=== PATIENT | male | born 1975 | race Caucasian/White ===

== ENCOUNTER 2017-05-09 22:33 | Emergency (ER) | payer SELFPAY ==
--- NOTE | 2017-05-09 23:33 | ER Document Report ---
HPI - HPI Patient complains to provider of: Cough, headache, laryngitis, cannot hear out of his left ear Onset: Other - Symptoms have been 3 weeks Pain Level: 5 Context: 42-year-old smoker normally healthy male complaining of throbbing left sided headache posterior occiput to temporal, 5/5 due to coughing that started at 10: 00 pm. The headache has been intermittent for 3 days. He has been sick for 3 weeks with losing his voice, coughing, and tonight he cannot hear out of his left ear. Associated Symptoms: None Exacerbated by: Coughing Relieved by: Other - motrin Similar symptoms previously: No Recently seen / treated by doctor: No - ROS ROS below otherwise negative: Yes Systems Reviewed and Negative: Yes All other systems reviewed and negative Past Medical History - General Information source: Patient - Social History Smoking Status: Current Every Day Smoker Frequency of alcohol use: None Drug Abuse: None Lives with: Family Family History: Arthritis, CAD, CVA, DM, Hyperlipidemia, Hypertension, Malignancy, Thyroid Disfunction Musculoskeltal Medical History: Reports Hx Arthritis Surgical Hx: Negative - Immunizations Hx Diphtheria, Pertussis, Tetanus Vaccination: Yes Vertical Provider Document - CONSTITUTIONAL Agree With Documented VS: Yes Exam Limitations: No Limitations - INFECTION CONTROL TRAVEL OUTSIDE OF THE [place] IN LAST 30 DAYS: No - HEENT HEENT: Normocephalic, Pharyngeal Erythema. negative: Conjuctival Injection, Tympanic Membrane Red - NECK Neck: Supple. negative: Lymphadenopathy-Left, Lymphadenopathy-Right - RESPIRATORY Respiratory: Breath Sounds Normal, No Respiratory Distress O2 Sat by Pulse Oximetry: 95 - CARDIOVASCULAR Cardiovascular: Regular Rate, Regular Rhythm - GI/ABDOMEN Gastrointestinal: Abdomen Soft, Abdomen Non-Tender - MUSCULOSKELETAL/EXTREMETIES Musculoskeletal/Extremeties: DEIRDRE MIMS - NEURO Level of Consciousness: Awake, Alert, Appropriate - DERM Integumentary: Warm, Dry, No Rash Course - Re-evaluation Re-evalutation: 05/10/17 00:24 Headache down to 3/5. Heat applied to the posterior left neck muscles that are tender. He states that the albuterol nebulizer did not help. 05/10/17 00:42 Patient is complaining of right elbow pain and he is shaking a lot to get since that home is no different than what he has had in the past. Heat seems to help. The head CT and chest x-ray are negative. - Vital Signs Vital signs: Temp Pulse Resp BP Pulse Ox 97.9 F 72 16 156/86 H 95 05/09/17 22:41 05/09/17 22:41 05/09/17 22:41 05/09/17 22:41 05/09/17 22:41 Discharge - Discharge Clinical Impression: Upper respiratory infection, Laryngitis Headache Qualifiers: Headache type: unspecified Headache chronicity pattern: episodic headache Intractability: not intractable Qualified Code(s): R51 - Headache Condition: Good Disposition: HOME, SELF-CARE Instructions: Intravenous Compazine for Headaches ([facility]), Use of Diphenhydramine , Headache ([facility]), Laryngitis ([facility]), Stop Smoking ([facility]), Toradol Injection ([facility]) , Upper Respiratory Illness ([facility]) Additional Instructions: heat to sore neck muscle see neurologist if headache persists stop smoking drink plenty of fluids cool mist humidifier at night to er if worse Please complete the patient satisfaction survey if you get one, and return it.. If you do not receive a survey, then you can go to the [facility] website, [email or web address] and place your comments about your very good care. Thank you very much. It was a pleasure being your medical provider today. Prescriptions: Benzonatate [Tessalon Perles 100 mg Capsule] 100 mg PO ASDIR PRN #30 capsule PRN Reason: Referrals: JOANA RIOS MD [ACTIVE STAFF] - Follow up as needed
[2017-05-09] MEDS ORDERED: DIPHENHYDRAMINE HCL 50 MG/ML VIAL IV ONE (23:38)
[2017-05-09] MEDS ORDERED: KETOROLAC TROMETHAMINE INJ/PF 30 MG/1 ML SDV IV ONE (23:38)
[2017-05-09] MEDS ORDERED: PROCHLORPERAZINE EDISYLATE INJ 10 MG/2 ML VIAL IV ONE (23:38)
[2017-05-09] MEDS ORDERED: ALBUTEROL SULFATE 0.083% NEB 2.5 MG/3 ML AMPUL NEB ONE (23:43)
--- NOTE | 2017-05-10 00:34 | RADIOLOGY REPORT (SQ) ---
EXAM DESCRIPTION: CHEST PA/LAT COMPLETED DATE/TIME: 05/09/2017 11:57 pm REASON FOR STUDY: cough COMPARISON: 08/25/2015. EXAM PARAMETERS: NUMBER OF VIEWS: two views TECHNIQUE: Digital Frontal and Lateral radiographic views of the chest acquired. RADIATION DOSE: NA LIMITATIONS: none FINDINGS: LUNGS AND PLEURA: No opacities, masses or pneumothorax. No pleural effusion. MEDIASTINUM AND HILAR STRUCTURES: No masses or contour abnormalities. HEART AND VASCULAR STRUCTURES: Heart normal size. No evidence for failure. BONES: No acute findings. HARDWARE: None in the chest. OTHER: No other significant finding. IMPRESSION: NO SIGNIFICANT RADIOGRAPHIC FINDING IN THE CHEST. TECHNICAL DOCUMENTATION: JOB ID: [id number] [employer]- All Rights Reserved
--- NOTE | 2017-05-10 00:37 | RADIOLOGY REPORT (SQ) ---
EXAM DESCRIPTION: CT HEAD WITHOUT COMPLETED DATE/TIME: 05/10/2017 12:05 am REASON FOR STUDY: headache COMPARISON: None. TECHNIQUE: Axial images acquired through the brain without intravenous contrast. Images reviewed wi th bone, brain and subdural windows. Images stored on PACS. All CT scanners at this facility use dose modulation, iterative reconstruction, and/or weight based d osing when appropriate to reduce radiation dose to as low as reasonably achievable (ALARA). [facility]: Dose Right [facility]: CareDose [facility]: Dose Right [facility]: Teradose 4D [facility]: [employer] RADIATION DOSE: Up-to-date CT equipment and radiation dose reduction techniques were employed. CTDIv ol: 49.0 mGy. DLP: 783 mGy-cm. mGy. LIMITATIONS: None. FINDINGS: VENTRICLES: Normal size and contour. CEREBRUM: No masses. No hemorrhage. No midline shift. No evidence for acute infarction. Normal gra y/white matter differentiation. No areas of low density in the white matter. CEREBELLUM: No masses. No hemorrhage. No alteration of density. No evidence for acute infarction. EXTRAAXIAL SPACES: No fluid collections. No masses. ORBITS AND GLOBE: No intra- or extraconal masses. Normal contour of globe without masses. CALVARIUM: No fracture. PARANASAL SINUSES: No fluid or mucosal thickening. SOFT TISSUES: No mass or hematoma. OTHER: No other significant finding. IMPRESSION: NORMAL BRAIN CT WITHOUT CONTRAST. EVIDENCE OF ACUTE STROKE: NO. COMMENT: Quality ID # [id number]: Final reports with documentation of one or more dose reduction techniques (e.g., Automated exposure control, adjustment of the mA and/or kV according to patient size, use of iterative reconstruction technique) TECHNICAL DOCUMENTATION: JOB ID: [id number] [employer]- All Rights Reserved
[2017-05-10 00:51] VITALS: BP 132/81
== END 2017-05-10 00:50 | disposition home or self-care (01) ==
LOC: ER 22:33
DX: J06.9 Acute upper respiratory infection, unspecified (principal); J04.0 Acute laryngitis; R51 Headache; R05 Cough; H91.92 Unspecified hearing loss, left ear; F17.200 Nicotine dependence, unspecified, uncomplicated
CPT/HCPCS: 94640; 99284; 96374; 96375; 71020; 70450; J1200; J1885; J0780

== ENCOUNTER 2018-10-10 09:21 | Observation (INO) | payer MEDICAID ==
[~2018-10-10 09:21] MED LIST: ASPIRIN 325 MG TABLET PO PRN; DIAZEPAM 5 MG TABLET PO PRN; DIPHENHYDRAMINE HCL 25 MG CAPSULE PO PRN
[2018-10-10] MEDS ORDERED: RADIAL COCKTAIL SYRINGE 10 ML IV PRN ×4 (09:51)
[2018-10-10] MEDS ORDERED: HEPARIN SODIUM,PORCINE/NS/PF 2,000 UNIT/1,000 ML RTUINJ IV ONE (11:31)
[2018-10-10] MEDS ORDERED: LIDOCAINE 1% INJ-PF (10 MG/ML) 30 ML SDV ONE (11:31)
[2018-10-10] MEDS ORDERED: MIDAZOLAM 2 MG/2 ML INJ ONE (11:54)
[2018-10-10] MEDS ORDERED: FENTANYL CITRATE INJ/PF 100 MCG/2 ML AMPUL ONE ×2 (11:54→12:59)
[2018-10-10] MEDS ORDERED: BIVALIRUDIN INJ 250 MG VIAL IV ONE (12:32)
[2018-10-10] MEDS ORDERED: NITROGLYCERIN/D5W 50 MG/250 ML RTUINJ IV ONE (12:38)
[2018-10-10] MEDS ORDERED: METOPROLOL TARTRATE PF/INJ 5 MG/5 ML SDV IV ONE ×2 (12:50→13:05)
[2018-10-10] MEDS ORDERED: TICAGRELOR 90 MG TABLET ONE (12:56)
[2018-10-10] MEDS ORDERED: AMIODARONE HCL INJ 150 MG/3 ML VIAL IV ONE (13:09)
--- NOTE | 2018-10-10 13:43 | Operative Report ---
Operative Report DATE OF SURGERY: 10/10/18 PREOPERATIVE DIAGNOSIS: Angina pectoris POSTOPERATIVE DIAGNOSIS: Coronary artery disease stent to the RCA. Atrial fibrillation OPERATION: Left heart catheterization coronary angiography left ventriculography and stent implantation to the right coronary artery cardioversion of new onset atrial fibrillation SURGEON: DEEPAK POLLOCK ANESTHESIA: Moderate Sedation COMPLICATIONS: Atrial fibrillation PROCEDURE: Following informed consent, the patient was premedicated with Diazepam and Benadryl. The right femoral region was prepared in the usual sterile and draped manner and anesthetized with 1% Lidocaine solution. A 6 [place] Introducer was placed transcutaneously into the right femoral artery without difficulty. A 6 [place] angled pigtail catheter was used for left heart catheterization and left ventriculography. This was performed in the standard KAY projection. LVEDP was measured prior to and after the ventriculogram. Pull back across the aortic valve was performed with continuous hemodynamic monitoring. The catheter was exchanged to a JL-4 coronary catheter over a 0.035 ``J guidewire, and selective angiography was performed in multiple orthogonal projections. Selective right coronary angiography was performed using a JR-4 catheter. At the conclusion of the procedure, the catheter and sheaths were removed and hemostasis was achieved without difficulty. The patient left the Cardiac Catheterization Lab in stable condition, with intact distal pulses and no chest pain or other complications from the procedure. Conscious sedation was initiated, monitored, and maintained during the procedure with the start time of 1221 and a completion time of 1300 for a total procedure time of 39 minutes. A total of 2 milligrams of Versed and 125 milligrams and fentanyl were used for conscious sedation. HEMODYNAMIC DATA: Aortic pressure to beginning the case is 116/59 post ventriculography LV pressure is 123/15 aortic pressure on pullback 123/58 there is no gradient across the aortic valve CORONARY ANATOMY: [] ANGIOGRAPHY: [] VENTRICULOGRAPHY: Ventriculography is performed in the KAY projection and dem onstrates [normal left ventricular systolic ] . CORONARY ANGIOGRAPHY: [] LEFT MAIN: Normal LEFT ANTERIOR DESCENDING: [LAD is transapical the LAD and diagonal vessels have luminal irregularities but no critical focal stenosis] CIRCUMFLEX CORONARY: [Normal] RIGHT CORONARY ARTERY: [90 to 95% ulcerated lesion with diffuse spasm intracoronary nitroglycerin was administered clearly defining the high-grade mid stenosis. The right coronary artery is a dominant vessel supplying the PDA and posterolateral branches Coronary intervention: Patient received Angiomax and a JR4 guiding catheter was advanced into the ostium of the right coronary artery which was then crossed with an 014 intuition guidewire primary stented implantation was performed with a 3 522 mm Medtronic denisha drug-eluting stent this was then postdilated to 3.8 mm with a 0% residual and excellent angiographic result there is no side branch loss or distal embolization. The patient had significant hemodynamic instability during the procedure with heart rates dropping into the 40s and then increasing to the 110 range. He developed atrial fibrillation and synchronized cardioversion and 150 mg of amiodarone were administered this was unsuccessful and the patient remained in atrial fibrillation The procedure was terminated and hemostasis was achieved using a Perclose device ] IMPRESSION: 1. Normal left ventricular function 2. No evidence of significant valvular heart disease 3. Essentially normal LAD and circumflex 4. High-grade mid right coronary artery 5 successful drug-eluting stent implantation in the RCA 6. New onset atrial fibrillation with failure of synchronized cardioversion
--- NOTE | 2018-10-10 16:51 | PDOC H&P ---
History of Present Illness History of Present Illness: CARL MCCRARY is a 43 year old male who was directly admitted from the [facility] for new onset atrial fibrillation after a cardiac catheterization with percutaneous intervention. Patient has a history of newly diagnosed coronary artery disease and had an elective cardiac catheterization with elective intervention today. At the end of the procedure he developed new onset atrial fibrillation with RVR. He received 150 mg amiodarone and did not convert, and then it they attempted electrical cardioversion and this was also unsuccessful. Dr. Bland called and asked to have the patient admitted and monitored overnight and he said that he and his associates would also consult on this pa tient while he is in the hospital. Past Medical History Cardiac Medical History: Reports: Hypertension Denies: Coronary Artery Disease, Myocardial Infarction Pulmonary Medical History: Denies: Asthma, Bronchitis, Chronic Obstructive Pulmonary Disease (COPD), Pneumonia Neurological Medical History: Denies: Seizures Musculoskeltal Medical History: Reports: Arthritis Hematology: Denies: Anemia Social History Smoking Status: Current Every Day Smoker Family History Family History: Arthritis, CAD, CVA, DM, Hyperlipidemia, Hypertension, Malignancy, Thyroid Disfunction Parental Family History Reviewed: Yes - Diabetes, hypertension, coronary artery disease Children Family History Reviewed: Yes Sibling(s) Family History Reviewed.: Yes Medication/Allergy Home Medications: Aspirin [Ecotrin 81 mg EC Tablet] 81 mg PO DAILY 90 Days #90 tabec 10/10/18 Cetirizine HCl [Zyrtec 10 mg Tablet] 1 tab PO DAILY 10/10/18 Fenofibrate 145 mg PO QHS 10/10/18 Hydroxyzine HCl [Atarax 10 mg Tablet] 10 mg PO DAILY 10/10/18 Lisinopril [Prinivil] 10 mg PO DAILY 10/10/18 Ticagrelor [Brilinta 90 mg Tablet] 1 tab PO BID 90 Days #180 tablet 10/10/18 Zolpidem Tartrate [Ambien 5 mg Tablet] 5 mg PO HSP 10/10/18 Allergies/Adverse Reactions: codeine [Codeine] Allergy (Verified 10/10/18 09:48) N/V Review of Systems All systems: reviewed and no additional remarkable complaints except as stated - All systems were reviewed and were negative except as noted above Physical Exam Vital Signs: Temp Pulse Resp BP Pulse Ox 97.7 F 99 13 152/84 H 96 10/10/18 14:36 10/10/18 15:10 10/10/18 15:10 10/10/18 15:10 10/10/18 15:10 Intake & Output 10/09/18 10/10/18 10/11/18 06:59 06:59 06:59 Weight 87.997 kg General appearance: PRESENT: no acute distress, cooperative, disheveled, obese Head exam: PRESENT: atraumatic, normocephalic Eye exam: PRESENT: EOMI, PERRLA. ABSENT: conjunctival injection, nystagmus, scleral icterus Ear exam: PRESENT: normal external ear exam Mouth exam: PRESENT: moist, neck supple Teeth exam: PRESENT: poor dentation Throat exam: ABSENT: post pharyngeal erythema Neck exam: PRESENT: full ROM. ABSENT: carotid bruit, JVD, lymphadenopathy, meningismus, tenderness, thyromegaly Respiratory exam: PRESENT: clear to auscultation mile, symmetrical, unlabored. ABSENT: accessory muscle use, crackles, prolonged expiratory phas, rhonchi, tachypnea, wheezes Cardiovascular exam: PRESENT: irregular rhythm Pulses: PRESENT: normal carotid pulses Vascular exam: PRESENT: normal capillary refill GI/Abdominal exam: PRESENT: normal bowel sounds, soft. ABSENT: distended, guarding, rebound, tenderness Extremities exam: ABSENT: clubbing, pedal edema Musculoskeletal exam: PRESENT: normal inspection. ABSENT: deformity Neurological exam: PRESENT: alert, awake, oriented to person, oriented to place, oriented to time, oriented to situation, CN II-XII grossly intact. ABSENT: motor sensory deficit Psychiatric exam: PRESENT: flat affect Skin exam: PRESENT: dry, warm Assessment and Plan - Diagnosis (1) New onset atrial fibrillation Is this a current diagnosis for this admission?: Yes Plan: Started him on some oral metoprolol. Dr. Nikunj Bland and his group will see the patient in consultation. (2) Coronary artery disease Qualifiers: Coronary Disease-Associated Artery/Lesion type: [place] artery [place] vs. transplanted heart: [place] heart Associated angina: without angina Qualified Code(s): I25.10 - Atherosclerotic heart disease of [place] coronary artery without angina pectoris Is this a current diagnosis for this admission?: Yes Plan: We will start on aspirin and Brilinta whenever he goes home per cardiology recommendations. - Time Time Spent with patient: 35 or more minutes
[2018-10-10] MEDS: METOPROLOL TARTRATE 25 MG TABLET PO SCH (21:09)
[2018-10-11] MEDS: METOPROLOL TARTRATE 25 MG TABLET PO SCH (05:11)
[2018-10-11 05:49] LABS: HEMATOCRIT 42.8 % (37.9-51.0); HEMOGLOBIN 14.7 g/dL (13.5-17.0); MEAN CORPUSCULAR HEMOGLOBIN 30.6 pg (27.0-33.4); MEAN CORPUSCULAR HGB CONC 34.5 g/dL (32.0-36.0); MEAN CORPUSCULAR VOLUME 89 fl (80-97); PLATELET COUNT 190 10^3/uL (150-450); RED BLOOD COUNT 4.81 10^6/uL (4.35-5.55); RED CELL DISTRIBUTION WIDTH 13.7 % (11.5-14.0); WHITE BLOOD COUNT 15.1 10^3/uL (4.0-10.5)
[2018-10-11 06:16] LABS: ALANINE AMINOTRANSFERASE 55 U/L (21-72); ALKALINE PHOSPHATASE 70 U/L (38-126); ANION GAP 7 (5-19); ASPARTATE AMINO TRANSFERASE 39 U/L (17-59); BILIRUBIN,DIRECT 0.2 mg/dL (0.0-0.4); BILIRUBIN,TOTAL 0.2 mg/dL (0.2-1.3); BLOOD UREA NITROGEN 16 mg/dL (7-20); CALCIUM 9.3 mg/dL (8.4-10.2); CARBON DIOXIDE 24 mmol/L (22-30); CHLORIDE 110 mmol/L (98-107); GLUCOSE 135 mg/dL (75-110); POTASSIUM 3.9 mmol/L (3.6-5.0); SODIUM 141.4 mmol/L (137-145); TOTAL PROTEIN 6.3 g/dL (6.3-8.2)
[2018-10-11] MEDS ORDERED: ZOLPIDEM TARTRATE 5 MG TABLET PO PRN (08:30)
[2018-10-11] MEDS ORDERED: (PENDING PHARMACY ID) (Fenofibrate [Fenofibrate] 145 MG) PO SCH (08:30)
[2018-10-11] MEDS ORDERED: ASPIRIN 81 MG TABLET, ENT COATED PO SCH (10:00)
[2018-10-11] MEDS ORDERED: LISINOPRIL 10 MG TABLET PO SCH (10:00)
[2018-10-11] MEDS ORDERED: HYDROXYZINE HCL 10 MG TABLET PO SCH (10:00)
[2018-10-11] MEDS ORDERED: CETIRIZINE 10 MG TABLET PO SCH (10:00)
[2018-10-11 10:48] VITALS: BP 115/84
--- NOTE | 2018-10-11 10:54 | PDOC DISCHARGE SUMMARY ---
General - Admit/Disc Date/PCP Discharge Date: 10/11/18 - Discharge Diagnosis (1) New onset atrial fibrillation Is this a current diagnosis for this admission?: Yes Summary: 43-year-old male came to the hospital for cardiac cath as an outpatient had a new onset atrial fibrillation. Failed cardioversion. He was given a marathon without any help he was shocked still in A. fib. He was transferred to ICU started on metoprolol and Roann aspirin no acute events in the last [address] Chavis saw the patient this morning he requested me to discharge the patient on Brilinta 90 mg twice a day, simvastatin 10 mg p.o. nightly metoprolol 25 mg p.o. 12 hours, Xarelto 20 mg p.o. daily. Patient and family agreed to go home today. He is going to follow-up with Dr. Omalley in 3 to 5 days. (2) Coronary artery disease Is this a current diagnosis for this admission?: Yes Summary: 10/11/2018-status post cardiac cath stent placement in RCA. Presents with chest pains. She is going home on brillinta, simvastatin, Xarelto. (3) HTN (hypertension) Is this a current diagnosis for this admission?: No Summary: 10/11/2018-patient has history of hypertension patient was advised to continue lisinopril at home. - Additional Information Discharge Diet: Cardiac Discharge Activity: Slowly Increase Activity Prescriptions: Aspirin [Ecotrin 81 mg EC Tablet] 81 mg PO DAILY 90 Days #90 tabec Metoprolol Tartrate [Lopressor 25 mg Tablet] 25 mg PO Q12 #60 tab Rivaroxaban [Xarelto] 20 mg PO DAILY #30 tablet Simvastatin [Zocor 10 mg Tablet] 10 mg PO QHS #30 tablet Ticagrelor [Brilinta 90 mg Tablet] 1 tab PO BID 90 Days #180 tablet Home Medications: Aspirin [Ecotrin 81 mg EC Tablet] 81 mg PO DAILY 90 Days #90 tabec 10/10/18 Cetirizine HCl [Zyrtec 10 mg Tablet] 1 tab PO DAILY 10/10/18 Fenofibrate 145 mg PO QHS 10/10/18 Hydroxyzine HCl [Atarax 10 mg Tablet] 10 mg PO DAILY 10/10/18 Lisinopril [Prinivil] 10 mg PO DAILY 10/10/18 Ticagrelor [Brilinta 90 mg Tablet] 1 tab PO BID 90 Days #180 tablet 10/10/18 Zolpidem Tartrate [Ambien 5 mg Tablet] 5 mg PO HSP 10/10/18 Metoprolol Tartrate [Lopressor 25 mg Tablet] 25 mg PO Q12 #60 tab 10/11/18 Rivaroxaban [Xarelto] 20 mg PO DAILY #30 tablet 10/11/18 Simvastatin [Zocor 10 mg Tablet] 10 mg PO QHS #30 tablet 10/11/18 History of Present Illness History of Present Illness: CARL MCCRARY is a 43 year old male 43 year old male who was directly admitted from the [facility] for new onset atrial fibrillation after a cardiac catheterization with percutaneous intervention. Patient has a history of newly diagnosed coronary artery disease and had an elective cardiac catheterization with elective intervention today. At the end of the procedure he developed new onset atrial fibrillation with RVR. He received 150 mg amiodarone and did not convert, and then it they attempted electrical cardioversion and this was also unsuccessful. Dr. Bland called and asked to have the patient admitted and monitored overnight and he said that he and his associates would also consult on this patient while he is in the hospital. Hospital Course Hospital Course: 10/11/[id number]-xmhc-old male came to the hospital for a cardiac cath as an outpatient status post stent placement in the RCA. He developed new onset atrial fibrillation after the procedure. Not responded to amiodarone not respond to shocks ,he was placed in ICU for further management pt was started on metoprolol 12.5 mg p.o. every 8 hours ,heart rate was controlled now but still in atrial fib. Dr. hooper saw the patient this morning ,his recommendation is to start the patient on Xarelto. Patient is going home today on Xarelto. Physical Exam Vital Signs: Temp Pulse Resp BP Pulse Ox 98.1 F 80 18 143/84 H 95 10/11/18 08:00 10/11/18 10:00 10/11/18 10:16 10/11/18 10:16 10/11/18 10:16 Intake & Output 10/10/18 10/11/18 10/12/18 06:59 06:59 06:59 Intake Total 620 Output Total 1825 0 Balance -1205 0 Weight 87.9 kg General appearance: PRESENT: no acute distress, obese Head exam: PRESENT: atraumatic Eye exam: PRESENT: PERRLA Mouth exam: PRESENT: moist, tongue midline Neck exam: ABSENT: carotid bruit, JVD, lymphadenopathy, thyromegaly Respiratory exam: PRESENT: decreased breath sounds Cardiovascular exam: PRESENT: irregular rhythm GI/Abdominal exam: PRESENT: normal bowel sounds, soft. ABSENT: distended, guarding, mass, organolmegaly, rebound, tenderness Rectal exam: PRESENT: deferred Extremities exam: PRESENT: full ROM. ABSENT: calf tenderness, clubbing, pedal edema Neurological exam: PRESENT: alert, awake, oriented to person, oriented to place, oriented to time, oriented to situation, CN II-XII grossly intact. ABSENT: motor sensory deficit Psychiatric exam: PRESENT: appropriate affect, normal mood. ABSENT: homicidal ideation, suicidal ideation Results Laboratory Results: 10/11/18 05:05 10/11/18 05:05 10/11/18 10/11/18 05:05 05:05 WBC 15.1 H RBC 4.81 Hgb 14.7 Hct 42.8 MCV 89 MCH 30.6 MCHC 34.5 RDW 13.7 Plt Count 190 Sodium 141.4 Potassium 3.9 Chloride 110 H Carbon Dioxide 24 Anion Gap 7 BUN 16 Creatinine 0.80 Est GFR ( Amer) > 60 Est GFR (Non-Af Amer) > 60 Glucose 135 H Calcium 9.3 Total Bilirubin 0.2 AST 39 ALT 55 Alkaline Phosphatase 70 Total Protein 6.3 Albumin 4.0 Qualifiers - * PATIENT BEING DISCHARGED WITH ANY OF THE FOLLOWING DIAGNOSIS: No VTE patient discharged on overlapping Therapy?: No
[2018-10-11] MEDS ORDERED: TICAGRELOR 90 MG TABLET PO ONE (11:00)
[2018-10-11] MEDS ORDERED: METOPROLOL TARTRATE 25 MG TABLET PO ONE (12:00)
[2018-10-11] MEDS ORDERED: FENOFIBRATE NANOCRYSTALLIZED 145 MG TABLET PO SCH (22:00)
--- NOTE | 2018-10-13 13:01 | EKG REPORT ---
SEVERITY:- ABNORMAL ECG - ATRIAL FIBRILLATION : Confirmed by: Francisco Javier Bolanos MD 13-Oct-2018 13:00:43
== END 2018-10-11 11:50 | disposition home or self-care (01) ==
LOC: CCL 09:21 → ICU 17:44 → CCL 17:45 → UNDOFXSDCSVC 10-11 11:13 → UNDOFXSDCACCOM 10-11 11:13 → UNDOFXSDCRRACCOM 10-11 11:13 → CCL 10-11 11:50 → ICU 10-11 11:50
PROVIDERS: ADMIT Family Medicine; ATTEND Family Medicine
PROC: 4A023N7 Measurement of Cardiac Sampling and Pressure, Left Heart, Percutaneous Approach (ICD-10-PCS; principal; 2018-10-10)
PROC: B210YZZ Fluoroscopy of Single Coronary Artery using Other Contrast (ICD-10-PCS; 2018-10-10)
PROC: B215YZZ Fluoroscopy of Left Heart using Other Contrast (ICD-10-PCS; 2018-10-10)
PROC: 027034Z Dilation of Coronary Artery, One Artery with Drug-eluting Intraluminal Device, Percutaneous Approach (ICD-10-PCS; 2018-10-10)
PROC: 5A2204Z Restoration of Cardiac Rhythm, Single (ICD-10-PCS; 2018-10-10)
DX: I97.190 Other postprocedural cardiac functional disturbances following cardiac surgery (principal); I48.91 Unspecified atrial fibrillation; Y84.0 Cardiac catheterization as the cause of abnormal reaction of the patient, or of later complication, without mention of misadventure at the time of the procedure; I25.10 Atherosclerotic heart disease of native coronary artery without angina pectoris; I10 Essential (primary) hypertension; E66.9 Obesity, unspecified; F17.200 Nicotine dependence, unspecified, uncomplicated; Z82.49 Family history of ischemic heart disease and other diseases of the circulatory system; Z79.82 Long term (current) use of aspirin; Z79.899 Other long term (current) drug therapy
CPT/HCPCS: 36415; 85027; 80053; 93458; 92928; 93005; 93010; 92960; G0378 ×2; G0379; C1894; J2250; J3490 ×13; J3010; J0282; J0583; J1644

== ENCOUNTER → 2019-03-04 | Outpatient (CLI) | payer MEDICAID ==
--- NOTE | 2019-03-04 15:10 | RADIOLOGY REPORT (SQ) ---
EXAM DESCRIPTION: CHEST 2 VIEWS COMPLETED DATE/TIME: 03/04/2019 2:47 pm REASON FOR STUDY: R05 COUGH COMPARISON: 05/09/2017 TECHNIQUE: Frontal and lateral radiographic views of the chest acquired. NUMBER OF VIEWS: Two view. LIMITATIONS: None. FINDINGS: LUNGS AND PLEURA: No pneumothorax. Mild bronchial wall thickening centrally. No consolid ation or pleural effusion. MEDIASTINUM AND HILAR STRUCTURES: Stable. HEART AND VASCULAR STRUCTURES: Stable. BONES: No acute findings. HARDWARE: None in the chest. OTHER: No other significant finding. IMPRESSION: Bronchitis.No consolidation or pleural effusion. TECHNICAL DOCUMENTATION: JOB ID: [id number] [employer]- All Rights Reserved Reading location - IP/workstation name: [email or web address]
== END ==
LOC: RAD 14:34
PROVIDERS: ATTEND Nurse Practitioner Family
DX: R05 Cough (principal)
CPT/HCPCS: 71046